=== PATIENT | male | born 1975 | race Caucasian/White ===

== ENCOUNTER 2018-09-29 10:35 | Day surgery (SDC) | payer MEDICAID ==
[2018-09-29] VITALS (10 sets, daily range): BP systolic 121–143; BP diastolic 74–89
[~2018-09-29] VITALS: Ht 154.9 cm; Wt 105.4 kg
[2018-09-29] MEDS ORDERED: LORazepam 0.5 MG tablet PO PRN (11:05)
[2018-09-29] MEDS ORDERED: diphenhydrAMINE 25mg capsule PO PRN (11:05)
[2018-09-29] MEDS ORDERED: normal saline 1000ml 1,000 ML IV SCH (11:05)
[2018-09-29] MEDS ORDERED: nitroGLYCERIN 0.4mg SUBLingual tab SL PRN (11:05)
[2018-09-29] MEDS ORDERED: LISI10TA4 PO (11:28)
[2018-09-29] MEDS ORDERED: PRAM0.129 PO (11:28)
[2018-09-29] MEDS ORDERED: OMEP20CA10 PO (11:28)
[2018-09-29] MEDS ORDERED: HYDR12.5 PO (11:28)
[2018-09-29] MEDS ORDERED: ASPI-611 PO (11:28)
[2018-09-29] MEDS ORDERED: NITR0.4T48 SL (11:28)
[2018-09-29] MEDS ORDERED: METO-539 PO (11:28)
[2018-09-29] MEDS ORDERED: iohexol 350 MG/ML 50ML vial IV ONE ×2 (12:07→12:41)
[2018-09-29] MEDS ORDERED: fentaNYL/PF 50MCG/1 ML 2ML syringe ONE (12:07)
[2018-09-29] MEDS ORDERED: iohexol 350MG/ML 100ml bottle IV ONE (12:07)
[2018-09-29] MEDS ORDERED: LIDOcaine 1% (10mg/ml)w/preservative injection 20ml MDV ONE (12:07)
[2018-09-29] MEDS ORDERED: midazolam 2 mg/2 ml injection ONE ×2 (12:07→12:40)
[2018-09-29] MEDS ORDERED: OXAZEpam 15mg capsule PO PRN (14:25)
[2018-09-29] MEDS ORDERED: ondansetron/PF 4mg/2ml inj IV PRN (14:25)
[2018-09-29] MEDS ORDERED: proCHLORperazine 10 MG/2 ml inj IV PRN (14:30)
[2018-09-29] MEDS ORDERED: HYDROcodone/acetaminophen 5mg/325mg tablet PO PRN (14:30)
[2018-09-29] MEDS: HYDROcodone/acetaminophen 10/325mg tab PO PRN ×2 (17:05→19:12)
== END 2018-09-29 19:00 | disposition home or self-care (01) ==
LOC: SSTAY O 10:35
PROVIDERS: ATTEND Internal Medicine Cardiovascular Disease
DX: I25.10 Atherosclerotic heart disease of native coronary artery without angina pectoris (principal); I25.2 Old myocardial infarction; I34.0 Nonrheumatic mitral (valve) insufficiency; I10 Essential (primary) hypertension; E78.5 Hyperlipidemia, unspecified; Z98.890 Other specified postprocedural states
CPT/HCPCS: 93458; 99152; 99153; A6257; J1644; J2001; J2250; J3010; J7030; Q0163; Q9967; A4620; C1760; C1769

== ENCOUNTER 2020-12-11 08:03 | Day surgery (SDC) | payer MEDICAID ==
[2020-12-09 12:57] LABS: BASOPHILS # (AUTO) 0.1 X10'3 (0-0.2); BASOPHILS % (AUTO) 0.6 % (0-1); EOSINOPHILS # (AUTO) 0.2 X10'3 (0-0.9); EOSINOPHILS % (AUTO) 1.9 % (0-6); HEMATOCRIT 41.8 % (42.0-52.0); HEMOGLOBIN 14.4 g/dl (14.0-17.9); LYMPHOCYTES # (AUTO) 3.2 X10'3 (1.1-4.8); LYMPHOCYTES % (AUTO) 33.1 % (21-51); MEAN CORPUSCULAR HEMOGLOBIN 32.7 PG (27.0-31.0); MEAN CORPUSCULAR HGB CONC 34.3 g/dL (33.0-36.5); MEAN CORPUSCULAR VOLUME 95.2 FL (78-98); MONOCYTES # (AUTO) 0.9 X10'3 (0-0.9); MONOCYTES % (AUTO) 8.9 % (2-12); NEUTROPHILS # (AUTO) 5.4 X10'3 (1.8-7.7); NEUTROPHILS % (AUTO) 55.5 % (42-75); PLATELET COUNT 216 X10'3 (140-440); WHITE BLOOD COUNT 9.7 X10'3 (4.5-11.0)
[2020-12-09 13:09] LABS: PARTIAL THROMBOPLASTIN TIME 29 SECONDS (22-32)
[2020-12-09 13:11] LABS: ANION GAP 9 (8-16); BLOOD UREA NITROGEN 14 MG/DL (7-18); BUN/CREATININE RATIO 15.6 (5.4-32.0); CHLORIDE 101 MMOL/L (99-107); GLUCOSE 100 MG/DL (70-104); POTASSIUM 4.1 MMOL/L (3.5-5.1); SODIUM 138 MMOL/L (135-145); TOTAL CARBON DIOXIDE 27.6 MMOL/L (24-32)
[2020-12-09 13:12] LABS: ALANINE AMINOTRANSFERASE 50 U/L (12-78); ALBUMIN 3.9 G/DL (3.4-5.0); ALBUMIN/GLOBULIN RATIO 0.9 (1.1-1.5); ALKALINE PHOSPHATASE 85 IU/L (46-116); ASPARTATE AMINO TRANSFERASE 21 U/L (10-37); BILIRUBIN,TOTAL 0.8 MG/DL (0.1-1.0); CALCIUM 8.9 MG/DL (8.5-10.1); TOTAL PROTEIN 8.1 G/DL (6.4-8.2); eGFR 90 ML/MIN
[~2020-12-11] VITALS: Ht 180.3 cm; Wt 107.3 kg
[2020-12-11] VITALS (11 sets, daily range): BP systolic 100–139; BP diastolic 65–84
[~2020-12-11 08:03] MED LIST: ASPI-611 PO; HYDR12.5 PO; LISI10TA27 PO; METO-539 PO; NITR0.4T48 SL; OMEP20CA15 PO; PRAM0.129 PO
[2020-12-11] MEDS ORDERED: normal saline 1,000 ML IV SCH (08:20)
[2020-12-11] MEDS ORDERED: diphenhydrAMINE 25mg capsule PO PRN (08:20)
[2020-12-11] MEDS ORDERED: LORazepam 0.5 MG tablet PO PRN (08:20)
[2020-12-11] MEDS ORDERED: nitroGLYCERIN 0.4mg SUBLingual tab SL PRN (08:20)
[2020-12-11] MEDS ORDERED: CLON-369 PO (08:40)
[2020-12-11] MEDS ORDERED: SERT25TA84 PO (08:40)
[2020-12-11] MEDS ORDERED: CLOP75TA34 PO (08:40)
[2020-12-11] MEDS ORDERED: ATOR10TA70 PO (08:40)
[2020-12-11] MEDS ORDERED: midazolam 1 mg/ML 2ml injection ONE ×3 (10:00→10:45)
[2020-12-11] MEDS ORDERED: fentaNYL/PF 50MCG/1 ML 2ML syringe ONE ×2 (10:00→10:45)
[2020-12-11] MEDS ORDERED: iohexol 350MG/ML 100ml bottle IV ONE (10:00)
[2020-12-11] MEDS ORDERED: LIDOcaine 1% (10mg/ml)w/preservative injection 20ml MDV ONE (10:00)
[2020-12-11] MEDS ORDERED: iohexol 350 MG/ML 50ML vial IV ONE ×2 (10:00→10:52)
[2020-12-11] MEDS ORDERED: HYDROcodone/acetaminophen 5mg/325mg tablet PO PRN (11:50)
[2020-12-11] MEDS ORDERED: OXAZEpam 15mg capsule PO PRN (11:50)
[2020-12-11] MEDS ORDERED: ondansetron/PF 4mg/2ml inj IV PRN (11:50)
[2020-12-11] MEDS ORDERED: proCHLORperazine 10 MG/2 ml inj IV PRN (11:50)
[2020-12-11] MEDS ORDERED: HYDROcodone/acetaminophen 10/325mg tab PO PRN (11:50)
== END 2020-12-11 17:50 | disposition home or self-care (01) ==
LOC: SSTAY O 08:03
PROVIDERS: ATTEND Internal Medicine Cardiovascular Disease
DX: R94.39 Abnormal result of other cardiovascular function study (principal); R07.9 Chest pain, unspecified; T82.855A Stenosis of coronary artery stent, initial encounter; I25.10 Atherosclerotic heart disease of native coronary artery without angina pectoris; M54.31 Sciatica, right side; I10 Essential (primary) hypertension; E78.5 Hyperlipidemia, unspecified; Z91.030 Bee allergy status; Z87.891 Personal history of nicotine dependence; Z79.899 Other long term (current) drug therapy; Y83.8 Other surgical procedures as the cause of abnormal reaction of the patient, or of later complication, without mention of misadventure at the time of the procedure; Y92.89 Other specified places as the place of occurrence of the external cause
CPT/HCPCS: 36415; 71046; 80053; 85025; 85610; 85730; 93005; 93458; 93571; 99152; C1751; C1760; C1769; J1644; J2001; J2250; J3010; J7030; Q0163; Q9967; 99153; A4620; A6258

== ENCOUNTER 2021-06-12 17:46 | Emergency (ER) | payer MEDICAID ==
[~2021-06-12] VITALS: Ht 180.3 cm; Wt 106.8 kg
[~2021-06-12 17:46] MED LIST changes: -ASPI-611 PO; +ATOR10TA70 PO; +CLON-369 PO; +CLOP75TA34 PO; -PRAM0.129 PO; +SERT25TA84 PO
[2021-06-12 18:12] VITALS: BP 127/83
[2021-06-12] MEDS ORDERED: PRED20TA PO (18:27)
[2021-06-12] MEDS ORDERED: AMOX-422 PO (18:27)
== END 2021-06-12 18:55 | disposition home or self-care (01) ==
LOC: ER 17:48
DX: J32.9 Chronic sinusitis, unspecified (principal); Z20.822 Contact with and (suspected) exposure to COVID-19; R50.9 Fever, unspecified; Z79.2 Long term (current) use of antibiotics; Z79.899 Other long term (current) drug therapy
CPT/HCPCS: 87635; 99283; C9803

== ENCOUNTER 2021-10-17 15:44 | Emergency (ER) | payer MEDICAID ==
[~2021-10-17] VITALS: Ht 177.8 cm; Wt 106.8 kg
[2021-10-17 16:32] VITALS: BP 148/92
[2021-10-17] MEDS ORDERED: ACYC-129 PO (17:43)
== END 2021-10-17 18:14 | disposition home or self-care (01) ==
LOC: ER 15:45
DX: K12.1 Other forms of stomatitis (principal)
CPT/HCPCS: 99283

== ENCOUNTER 2021-10-26 22:57 | Emergency (ER) | payer MEDICAID ==
[~2021-10-26] VITALS: Ht 177.8 cm; Wt 104.5 kg
[~2021-10-26 22:57] MED LIST changes: +ACYC-129 PO
[2021-10-27] MEDS ORDERED: pantoprazole 40mg Tablet.DR PO ONE (02:55)
[2021-10-27 03:53] LABS: BASOPHILS # (AUTO) 0.1 X10'3 (0-0.2); BASOPHILS % (AUTO) 0.8 % (0-1); EOSINOPHILS # (AUTO) 0.4 X10'3 (0-0.9); EOSINOPHILS % (AUTO) 2.9 % (0-6); HEMATOCRIT 42.2 % (42.0-52.0); HEMOGLOBIN 14.2 g/dl (14.0-17.9); LYMPHOCYTES % (AUTO) 32.9 % (21-51); MEAN CORPUSCULAR HEMOGLOBIN 31.5 PG (27.0-31.0); MEAN CORPUSCULAR HGB CONC 33.6 g/dL (33.0-36.5); MEAN CORPUSCULAR VOLUME 93.8 FL (78-98); MEAN PLATELET VOLUME 8.3 FL (7.4-10.4); MONOCYTES # (AUTO) 1.1 X10'3 (0-0.9); NEUTROPHILS # (AUTO) 6.6 X10'3 (1.8-7.7); NEUTROPHILS % (AUTO) 54.4 % (42-75); PLATELET COUNT 235 X10'3 (140-440); RED CELL DISTRIBUTION WIDTH 12.2 % (11.5-14.5); WHITE BLOOD COUNT 12.2 X10'3 (4.5-11.0)
[2021-10-27 04:06] LABS: ALANINE AMINOTRANSFERASE 49 U/L (12-78); ALBUMIN 3.8 G/DL (3.4-5.0); ALBUMIN/GLOBULIN RATIO 0.8 (1.1-1.5); ALKALINE PHOSPHATASE 72 IU/L (46-116); ANION GAP 12 (8-16); ASPARTATE AMINO TRANSFERASE 19 U/L (10-37); BILIRUBIN,TOTAL 0.4 MG/DL (0.1-1.0); BLOOD UREA NITROGEN 24 MG/DL (7-18); BUN/CREATININE RATIO 25.3 (5.4-32.0); CALCIUM 8.8 MG/DL (8.5-10.1); CHLORIDE 99 MMOL/L (99-107); CREATININE 0.95 MG/DL (0.60-1.10); GLUCOSE 99 MG/DL (70-104); POTASSIUM 3.7 MMOL/L (3.5-5.1); SODIUM 135 MMOL/L (135-145); TOTAL CARBON DIOXIDE 24.3 MMOL/L (24-32); TOTAL PROTEIN 8.3 G/DL (6.4-8.2); eGFR 85 ML/MIN
[2021-10-27] MEDS ORDERED: PANT-47 PO (04:22)
[2021-10-27 04:31] VITALS: BP 116/73
== END 2021-10-27 04:34 | disposition home or self-care (01) ==
LOC: ER 22:57
DX: K92.2 Gastrointestinal hemorrhage, unspecified (principal); I11.9 Hypertensive heart disease without heart failure; K21.9 Gastro-esophageal reflux disease without esophagitis; Z79.899 Other long term (current) drug therapy
CPT/HCPCS: 36415; 80053; 85025; 85610; 99283